=== PATIENT | female | born 1960 | race Caucasian/White ===

== ENCOUNTER 2018-06-25 18:16 | Observation (INO) ==
[2018-06-25] MEDS ORDERED: Naloxone 0.4 MG/ML INJ IVP PRN (21:35)
[2018-06-25 22:15] LABS: Estimated Average Glucose 105 mg/dl; Hemoglobin A1C 5.3 %
[2018-06-25 22:17] LABS: Prothrombin Time 11.4 Seconds (9.4-12.1)
[2018-06-25 22:20] LABS: Activated Partial Thrombo Time 27.3 Seconds (26.0-36.0)
[2018-06-25 22:37] LABS: Alanine Aminotransferase 12 Units/L (7-52); Albumin 3.4 g/dL (3.5-5.7); Albumin/Globulin Ratio 1.3 (1.1-2.2); Alkaline Phosphatase 89 Units/L (34-104); Aspartate Amino Transferase 12 Units/L (13-39); BUN/Creatinine Ratio 13 (6-26); Bilirubin,Total 0.3 mg/dL (0.3-1.0); Blood Urea Nitrogen 11 mg/dL (6-20); Calcium 8.9 mg/dL (8.6-10.3); Carbon Dioxide 23 mEq/L (23-29); Chloride 109 mEq/L (98-107); Chol/HDL Ratio 3.3 (0-4.9); Cholesterol 172 mg/dL (< 200); Ethanol < 10 mg/dL (Less than 10); Globulin 2.7 g/dL (2.4-3.5); Glucose 77 mg/dL (70-105); HDL Cholesterol 52 mg/dL (40-59); LDL Cholesterol,Calculated 90 mg/dL (0-99); Osmolality,Calculated 286 (280-300); Sodium 139 mEq/L (136-145); Total Protein 6.1 g/dL (6.4-8.9); Triglycerides 152 mg/dL (< 150); Troponin I < 0.03 ng/mL (< 0.04); eGFR For Non-African Americans > 60 (> 60)
[2018-06-25] MEDS ORDERED: Aspirin 325 MG TABLET PO ONE (23:55)
[2018-06-26 00:33] LABS: Bilirubin,Urine Negative (Negative); Blood,Urine Negative (Negative); Clarity,Urine Cloudy (Clear); Color,Urine Yellow (Yellow); Glucose,Urine (UA) Normal (Normal); Ketones,Urine Negative (Negative); Leukocyte Esterase,Urine Small (Negative); Nitrite,Urine Negative (Negative); PH,Urine 7.5 pH Units (5.0-8.0); Protein,Urine Negative (Neg-Trace); Specific Gravity,Urine 1.008 (1.010-1.025); Urobilinogen,Urine Normal (Normal)
[2018-06-26 00:55] LABS: Amphetamine Screen,Urine Negative ng/mL (Cutoff=1000); Barbiturate Screen,Urine Positive ng/mL (Cutoff=200); Benzodiazepines Screen,Urine Negative ng/mL (Cutoff=200); Cannabinoid Screen,Urine Negative ng/mL (Cutoff = 50); Cocaine Screen,Urine Negative ng/mL (Cutoff= 300); Opiate Screen,Urine Negative ng/mL (Cutoff=300); Phencyclidine Screen,Urine Negative ng/mL (Cutoff=25)
[2018-06-26 01:04] LABS: Squamous Epithelial Cell,Urine Few per lpf (None-Few); WBC,Urine 0-3 per hpf (0-3)
--- NOTE | 2018-06-26 01:23 | Internal Med History&Physical ---
Date of Encounter: 06/26/18 Time of Encounter: 01:17 Internal Medicine - H&P: HPI Chief complaint: Right upper extremity weakness/Word finding difficulty History of present illness: Ms. Hewitt is a 57 year old female with a past medical history of anxiety, depression, bipolar disorder, who initially presented to [facility] with a chief complaint of word finding difficulty and right sided upper extremity weakness. Patient states that around 1 PM in the afternoon while waiting in the car, she noted difficulty grasping objects with both hands, however more so with her right hand. She noted this when she went to take a drink of pop out of the bottle. She also noted worsening tremors in her hands which has been ongoing. At the same time, after her boyfriend returned the vehicle she noted difficulty speaking stating that she knew what she wanted to say but could not say the words. She reports that the symptoms became progressively worse on her way to the hospital. Patient did report a mild headache during the day. She does have a history of migraines, but states that her headache at that time was very mild in comparison. Initial CT scan of the head was unremarkable. Patient was subsequently transferred to [place] for further evaluation and neurological workup. Patient reports that her symptoms resolved shortly prior to transfer. Patient does report a history of hand tremors as well as a family history of Parkinson's and stroke in her mother. Patient denies any recent illness, numbness, tingling, palpitations, fever, chills, chest pain, shortness of breath, palpitations, nausea, vomiting or diarrhea. Patient has a significant smoking history. She has been smoking since the age of 20 and at one point was smoking 3 packs a day for approximately 6 years. Patient states that she has been cutting down and is now down to half a pack a day. On my assessment patient was lying in bed in no acute distress. Neurologically she was intact with diminished sensation in her right lower extremity which she states is chronic since her knee surgery. Past Med Surg Social Fam HX - Past Medical History Medical history: arthritis, asthma, COPD Additional medical history: restless leg syndrome, heart murmur, overactive bladder Psychiatric history: anxiety, bipolar, depression - Past Surgical History Surgical History: appendectomy, , cholecystectomy Additional surgical history: knee surgery - Social History Smoking Status: Current every day smoker Packs per day: 1/2 Smokeless Tobacco Status: No Alcohol use: none - Family History Mother Living Status: Hx Family Cardiac Disorders: Yes (HTN) Hx Family Neurologic Disorders: Yes (Dementia) Father Hx Family Cardiac Disorders: Yes (heart disease, HTN) Hx Family Endocrine Disorder: Yes (DM) Internal Medicine - H&P: Meds Allergy/AdvReac Type Severity Reaction Status Date / Time escitalopram [From Lexapro] Allergy Hives Verified 06/25/18 22:06 All Systems PM: A 10-system review of systems was performed and is negative for pertinent findi ngs except as documented above in the HPI. - Constitutional Constitutional: no chills, no fever(s), no night sweats - EENT Eyes: no change in vision, no discharge, no pain, no photophobia Ears: no ear discharge, no ear pain, no tinnitus Nose, mouth and throat: no dysphagia, no nasal discharge, no neck pain, no sore throat - Cardiovascular Cardiovascular ROS IM: no chest pain, no diaphoresis, no dyspnea, no lightheadedness, no palpitations, no syncope - Respiratory Respiratory: no cough, no dyspnea, no wheezing, no excessive phlegm production - Gastrointestinal Gastrointestinal: no abdominal pain, no diarrhea, no hematemesis, no hematochezia, no melena, no nausea, no vomiting - Genitourinary Genitourinary: no change in urinary stream, no dysuria, no flank pain, no hematuria - Musculoskeletal Musculoskeletal ROS IM: no numbness, no tingling - Integumentary Integumentary IM: no rash, no unusual bruising - Neurological Neurological ROS: no confusion, no convulsions, no focal weakness, no numbness, no tingling, no tremor(s) - Hematologic/Lymphatic Hematologic/Lymphatic: no easy bruising - Constitutional Vitals: Temp Pulse Resp BP Pulse Ox 97.8 F 60 16 115/70 96 06/25/18 23:27 06/25/18 23:27 06/25/18 23:27 06/25/18 23:27 06/25/18 23:27 Exam: General: Alert and oriented 3; lying in bed in no acute distress Skin:Normal color, no rash, no lesions. HEENT:EOM, pupils equal, round and reactive. Cardiovascular:Normal S1 & S2, no rubs, murmurs or gallops. No JVD. Pulse regular. Lungs:Normal breath sounds, no wheezes or crackles. Abdomen:Soft, non-tender, no rigidity. Extremities:No deformity, no edema or tenderness, no joint swelling or clubbing. Neurological: Normal cognition and motor skills. Cranial nerves II through XII intact. No evidence of pronator drift. Mild dysmetria. Muscle strength 4 out of 5 bilaterally in the upper extremities. 4 out of 5 in the left lower extremity. Unable to access right lower extremity due to hip pain. Diminished sensation in the right lower leg. Sensation otherwise intact everywhere else. Pulses:Carotid and radial pulses normal +2. Rest of the physical exam is non contributory Internal Med - H&P Results - Labs CBC & Chem 7: 06/26/18 03:00 06/26/18 03:00 Labs: BMP 06/25/18 21:54 Sodium 139 Potassium 4.0 Chloride 109 H Carbon Dioxide 23 BUN 11 Creatinine 0.83 Glucose 77 Calcium 8.9 Cardiac Enzymes 06/25/18 Range/Units 21:54 Troponin I < 0.03 (< 0.04) ng/mL Liver Function 06/25/18 Range/Units 21:54 Total Bilirubin 0.3 (0.3-1.0) mg/dL AST 12 L (13-39) Units/L ALT 12 (7-52) Units/L Alkaline Phosphatase 89 (34-104) Units/L Albumin 3.4 L (3.5-5.7) g/dL Urine 06/26/18 Range/Units 00:20 Urine Color Yellow (Yellow) Urine Clarity Cloudy A (Clear) Urine pH 7.5 (5.0-8.0) pH Units Ur Specific [place] 1.008 L (1.010-1.025) Urine Protein Negative (Neg-Trace) mg/dL Urine Glucose (UA) Normal (Normal) mg/dL - Assessment and plan (1) TIA (transient ischemic attack) Current Visit: Yes Status: Acute Assessment and plan: 57-year-old female with history of bipolar disorder and significant smoking history presents with transient word finding difficulty and right greater than left upper extremity weakness which now appears to have resolved concerning for possible TIA. Patient is also taking lithium side effects can present similarly. -Neurochecks -We will obtain a lithium level. -We will continue aspirin and initiate statin. -MRI in the morning -We will obtain echo and carotid duplex of the neck -Neurology consult (2) COPD (chronic obstructive pulmonary disease) Current Visit: Yes Status: Acute Assessment and plan: No evidence of acute exacerbation. We will continue with supportive care and home medications. Qualifiers: Qualified Code(s): J44.9 - Chronic obstructive pulmonary disease, unspecified (3) Asthma Current Visit: Yes Status: Acute Assessment and plan: History of asthma. No evidence of an acute exacerbation. We will monitor Qualifiers: Asthma complication type: unspecified Qualified Code(s): J45.909 - Unspecified asthma, uncomplicated (4) History of bipolar disorder Current Visit: Yes Status: Acute Assessment and plan: We will obtain lithium level and hold medication until verified. (5) DVT prophylaxis Current Visit: Yes Status: Acute Assessment and plan: Subcutaneous heparin - Time Spent With Patient Total time spent is greater than 50% in coordination of care (as documented) at patient's floor/unit and/or counseling patient:
[2018-06-26 04:45] LABS: Basophils # 0.1 K/mcL (0.0-0.2); Basophils % 0.5 %; Eosinophils # 0.3 K/mcL (0.0-0.6); Eosinophils % 2.7 %; Hematocrit 38.5 % (35.3-44.9); Hemoglobin 12.2 g/dL (11.5-15.4); Immature Granulocytes % 0.2 % (0-4); Lymphocytes # 3.5 K/mcL (0.6-4.6); Lymphocytes % 36.9 %; Mean Corpuscular HGB Conc 31.7 g/dL (31.6-35.5); Mean Corpuscular Hemoglobin 27.1 pg (28.0-33.3); Mean Corpuscular Volume 85.6 fL (83.0-100.0); Mean Platelet Volume 11.9 fL (9.4-12.4); Monocytes # 0.7 K/mcL (0.0-1.3); Monocytes % 7.4 %; Neutrophils # 4.9 K/mcL (1.6-8.9); Platelet Count 243 K/mcL (140-400); Red Cell Distribution Width 14.8 % (11.5-14.5); Segmented Neutrophils % 52.3 %
[2018-06-26 04:50] LABS: Prothrombin Time 11.1 Seconds (9.4-12.1)
[2018-06-26 04:53] LABS: Activated Partial Thrombo Time 25.9 Seconds (26.0-36.0)
[2018-06-26 05:14] LABS: Alanine Aminotransferase 11 Units/L (7-52); Albumin 3.3 g/dL (3.5-5.7); Albumin/Globulin Ratio 1.2 (1.1-2.2); Alkaline Phosphatase 85 Units/L (34-104); Aspartate Amino Transferase 18 Units/L (13-39); BUN/Creatinine Ratio 14 (6-26); Bilirubin,Total 0.3 mg/dL (0.3-1.0); Blood Urea Nitrogen 13 mg/dL (6-20); Calcium 9.2 mg/dL (8.6-10.3); Carbon Dioxide 24 mEq/L (23-29); Chloride 109 mEq/L (98-107); Globulin 2.7 g/dL (2.4-3.5); Glucose 100 mg/dL (70-105); Magnesium 2.1 mg/dL (1.6-2.6); Osmolality,Calculated 288 (280-300); Phosphorous 3.3 mg/dL (2.7-4.5); Potassium 4.4 mEq/L (3.5-5.1); Sodium 139 mEq/L (136-145); eGFR For Non-African Americans > 60 (> 60)
[2018-06-26] MEDS: *HR* Heparin 5,000 UNIT/ML VIAL SQ SCH ×3 (05:57→22:20)
--- NOTE | 2018-06-26 09:52 | Neurology - Consult Note ---
Addendum entered and electronically signed by Eduard Herr MD 06/26/18 17:27: Patient seen and examined in the presence of LABOR RELATIONS OFFICER Moises Gomez. Case discussed and imaging studies reviewed together. I agree with his history taking, physical examination and assessment outline below. In summery, this is a 57 eyar old woman with PMH significant for COPD, benign tremors, anxiety, and right knee arthritis who presented to the ER with increasing tremors, generalized weakness right more than left as well as some balance difficulty. Patient carries a dagnosis of benign tremors involving both hand as well as her whole body and she feels that her inside is shaky. been having some subtle right hand weakness and balance difficulty. MRI of brain showed no acute intracranial abnormality Will recommend getting MRI of cervical spine to assess possible of cervical myelopathy although currently she has no definitive myelopathic symptoms. Likely a type of benign tremor that has been aggravated by anxiety and COPD and medications used to treat COPD. Will recommend CTA of neck for the findings of left carotid artery stenosis on duplex study. Please continue medical and supportive. Patient is to follow up with her primary neurologist management of her benign tremors Will follow up patient tomorrow once studies are complete. Original Note: Date of Encounter: 06/26/18 Time of Encounter: 09:39 Assessment and Plan (1) TIA (transient ischemic attack) Current Visit: Yes Status: Ruled-out Neurology has been consulted with concerns for transient ischemic attack. The patient presented with increased tremulousness of bilateral upper extremities, transient difficulty with word finding and bilateral upper extremity weakness right greater than left. These symptoms appear to have resolved. CT of head from outlying hospital is negative for hemorrhage, mass effect, or obvious acute ischemia Bilateral carotid Dopplers show findings of left distal ICA severe stenosis Review of labs did not reveal any metabolic or infectious cause to explain her symptoms Per my exam today the patient does not have any focal or lateralizing neurological deficits and she is back to baseline state of health. She does have weakness with activity and a decreased activity tolerance. Consider cervical myelopathy as a cause of the weakness. It is unclear at this time if her symptoms were the result of a TIA, but given her presentation with bilateral weakness in the absence of neurological findings I do not believe that she has. MRI did not reveal any acute pathology. My recommendations are as follows Plan/Rec MR c-spine to assess for cervical myelopathy as the cause of weakness CTA of the head/neck to further assess for stenosis ECHO-LVEF 60-65%, mild LV LILI, mild AR I agree with continuing ASA and Statin I have discussed risk factor modification including weight loss and smoking cessation (2) Tremor of both hands Current Visit: Yes Status: Acute chronic action tremors; has a history of non progressive tremors x years. She has seen a neurologist at [facility] in the past for the tremors and is on Primidone to help manage them. Today she is resting comfortably in bed and in no acute distress. She reports that her symptoms have subsided and that she is now back to baseline. The tremors are noted to occur with activity and I was able to verify this on exam.. She does not have any bradykinesia or overt rigidity that would cause me to assume her tremors are Parkinson's disease. Instead I believe these are intention tremors. Given the number of years she has had tremors I would expect that if her tremors were caused by Parkinson's she would have had more obvious disease progression. In regards to the increase in tremulousness of bilateral u pper extremities yesterday I suspect that this was due to to excess fatigue. At this time, in regards to her tremors I do not recommend any additional workup. She can follow-up with her neurologist at [facility], for further evaluation. I recommend continuing her primidone (3) Weakness Current Visit: Yes Status: Acute see plan above History of Present Illness Chief complaint: Generalized weakness, tremors and concerns for TIA HPI: Ms. Hewitt is a 57 year old female with a PMH of anxiety, depression, bipolar disorder, and tremors. She presents from [facility] with concerns for difficulty with word finding, weakness of all 4 extremities and worsening of her chronic tremors. The patient states that she was in [place] with her significant other and waiting in the car while he was at a doctor's appointment. At around 1 PM she began to notice that she was having tremors in her bilateral upper extremities and weakness in her arms and legs bilaterally as well. She reports that her right arm was weaker than her left and that her tremors are worse with action that her hands felt clumsy. She notes that she was having difficulty opening a bottle of soda due to tremors and weakness. In regards to neurological symptoms she denies any visual changes, slurred speech, facial droop, hemiplegia, hemiparesis or paresthesias. She does admit to a mild headache at the time of symptom onset but this has since resolved. CT of head obtained at [facility] was found to be negative for acute intracranial abnormalities. Per my review of her laboratory values she did not have any acute electrolyte disturbances. Neurology has been consulted to assist with evaluating the cause of weakness, and to evaluate for suspected TIA. Past Med Surg Social Fam HX - Past Medical History Medical history: arthritis, asthma, COPD Additional medical history: restless leg syndrome, heart murmur, overactive bladder Psychiatric history: anxiety, bipolar, depression - Past Surgical History Surgical History: appendectomy, , cholecystectomy Additional surgical history: knee surgery - Social History Smoking Status: Current every day smoker Packs per day: 1/2 Smokeless Tobacco Status: No Alcohol use: none - Family History Mother Living Status: Hx Family Cardiac Disorders: Yes (HTN) Hx Family Neurologic Disorders: Yes (Dementia) Father Hx Family Cardiac Disorders: Yes (heart disease, HTN) Hx Family Endocrine Disorder: Yes (DM) Medications and Allergies Benzonatate 100 mg PO BID PRN 06/26/18 [History] BuPROPion SR (12 HR) [Wellbutrin SR] 150 mg PO BID 06/26/18 [History] Cholestyramine 1 packet PO BID PRN 06/26/18 [History] Cyclobenzaprine [Flexeril] 10 mg PO TID PRN 06/26/18 [History] Dicyclomine Hcl [Bentyl] 20 - 40 mg PO HS 06/26/18 [History] Diphenhydramine HCl [Allergy] 25 - 50 mg PO DAILY 06/26/18 [History] Ergocalciferol (VITAMIN D2) [Vitamin D2] 50,000 unit PO DAILY 06/26/18 [History] Estrogen, Con/M-Proges Acet [Prempro 0.625-2.5 mg Tablet] 1 tab PO DAILY 06/26/18 [History] FLUoxetine HCl [Fluoxetine HCl] 40 mg PO BID 06/26/18 [History] Gabapentin 600 mg PO TID PRN 06/26/18 [History] Guaifenesin [Mucus Relief] 400 mg PO Q4H PRN 06/26/18 [History] Ibuprofen 400 - 800 mg PO Q4-6H PRN 06/26/18 [History] [place] Carbonate 300 mg PO BID 06/26/18 [History] Methocarbamol [Robaxin] 750 mg PO BID PRN 06/26/18 [History] Multivit,Th Iron,Other Min [Therems-M] 1 tab PO DAILY 06/26/18 [History] Mupirocin [Bactroban Oint] 1 appl NS BID PRN 06/26/18 [History] Oxybutynin Chloride [Ditropan Xl] 15 mg PO DAILY 06/26/18 [History] Primidone [Mysoline] 100 mg PO BID 06/26/18 [History] Propranolol HCl 80 mg PO BID 06/26/18 [History] Rizatriptan Benzoate [Maxalt] 10 mg PO PRN PRN MDD 20 06/26/18 [History] Topiramate 50 mg PO BID PRN 06/26/18 [History] Tramadol HCl [Ultram] 50 mg PO TID PRN 06/26/18 [History] raNITIdine HCl [Ranitidine HCl] 300 mg PO DAILY 06/26/18 [History] Allergy/AdvReac Type Severity Reaction Status Date / Time escitalopram [From Lexapro] Allergy Hives Verified 06/26/18 08:51 All Systems: The remainder of the systems were reviewed and are negative Review of Systems: REVIEW OF SYSTEMS GENERAL: Negative for any nausea, vomiting, fevers, chills, or mobility impairment POSITIVE: slow to complete tasks, decreased activity tolerance NEUROLOGIC: Negative for any double vision, facial asymmetry, dysphagia, d ysarthria, hemiparesis, hemisensory deficits, vertigo, ataxia, seizures, convulsions, disorientation, coordination difficulties shuffling gait, difficulty rising from seated position POSITIVE: blurred vision (has since resolved), headache (has since resolved) difficulty with word finding, clumsiness of hands, and bilateral upper arm tremors. PSYCH: NEGATIVE: agitation/irritability, personality changes, delirium, mood changes, insomnia, nightmares, SI/HI POSITIVE: depression, anxiety HEENT: Negative for any head trauma, neck trauma, neck stiffness, photophobia, phonophobia, dysphagia, voice changes CARDIAC: Negative for any chest pain, dyspnea on exertion, HTN GASTROINTESTINAL: Negative for any abdominal pain, nausea, vomiting, bright red blood per rectum, melena. ENDOCRINE: Thyroid trouble, heat/cold intolerance, excessive sweating MUSCULOSKELETAL: Joint pain, stiffness, loss of strengt (bilateral/unilateral), arthritis (mono or poly) Joint swelling (mono or poly), muscle pain/swelling, limitations to motor activity or tolerance INTEGUMENTARY: Negative for any rashes, eruptions, dryness, changes in skin/hair, nails Physical Examination - Vital Signs Vital Signs: Initial Vital Signs Temp Pulse Resp BP Pulse Ox 98.1 F 61 16 121/78 95 06/25/18 21:19 06/25/18 21:19 06/25/18 21:19 06/25/18 21:19 06/25/18 21:19 - Exam Exam: Examination: General Examination: appears generally well, in no acute distress, resting comfortably in bed *CONSTITUTIONAL: obese, appropriate hygeine *GENERAL APPEARANCE OF PATIENT appears stated age and well groomed *EYES: pupils equal, round, reactive to light and accommodation, conjunctiva clear without masses or ulcerations, fundi normal. *CARDIOVASCULAR RRR, S1, S2, no mumurs, rubs, or gallops, no peripheral edema, distal temperature normal, dorsalis pedis pulses normal. Musculoskeletal: *GAIT AND STATION normal Romberg testing, no abnormalities such as broad base gait or spasticity, diminished arm swing with slowed gait, dysrhythmic movement of left foot *ASSESSMENT OF MUSCLE STRENGTH IN THE UPPER AND LOWER EXTREMITIES bilateral deltoid, bicep, tricep, apple sorter strength, hip flexors ,anterior tibialis, dorsoflexion of the foot 5/5 *MUSCLE TONE IN THE UPPER AND LOWER EXTREMITIES normal. No abnormal movements, fasciculations or atrophy identified. Neurological: *ORIENTATION to time and place *RECURRENT AND REMOTE MEMORY intact *ATTENTION AND CONCENTRATION are normal *LANGUAGE FUNCTION no significant aphasia or dysarthia was noted. *FUND OF KNOWLEDGE aware of current events, past history, vocabulary *MENTAL attention span and concentration normal. *CN II optic fundi were normal, no papilledema noted. *CN III,IV, PERRLA extraocular eye movements were full, no nystagmus and no ptosis noted. *CN V shows normal sensation and jaw opens symmetrically. *CN VII shows normal facial movement symmetrically, upper and lower bi laterally. *CN VIII shows no significant hearing loss on examination in the office. *CN IX,,X palate elevated symmetrically and normal gag reflex was noted. *CN XI normal strength in the sternocleidomastoid muscles, symmetrical shoulder shrugging. *CN XII tongue protruded in the midline, with normal strength and movement. *SENSORY EXAMINATION light touch intact *REFLEXES: deep tendon reflexes were normal and symmetrical , grade 2/4 diffusely, no pathological reflexes were noted. *CEREBELLAR TESTING normal finger to nose *PAIN LEVEL 0/10 Results - Laboratory Findings CBC and BMP: 06/26/18 03:00 06/26/18 03:00 Abnormal lab findings: Abnormal lab results MCH 27.1 pg (28.0-33.3) L 06/26/18 03:00 RDW 14.8 % (11.5-14.5) H 06/26/18 03:00 APTT 25.9 Seconds (26.0-36.0) L 06/26/18 03:00 Chloride 109 mEq/L (98-107) H 06/26/18 03:00 Serum Total Protein 6.0 g/dL (6.4-8.9) L 06/26/18 03:00 Albumin 3.3 g/dL (3.5-5.7) L 06/26/18 03:00 Triglycerides 152 mg/dL (< 150) H 06/25/18 21:54 Urine Clarity Cloudy (Clear) A 06/26/18 00:20 Ur Specific [place] 1.008 (1.010-1.025) L 06/26/18 00:20 Ur Leukocyte Esterase Small (Negative) H 06/26/18 00:20 Ur Barbiturates Screen Positive ng/mL ([place]=273) H 06/26/18 00:20 Consult Discharge Plan - Plan Referrals: Eunice Rios MD [Primary Care Provider] - 07/04/18 2:00 pm
[2018-06-26] MEDS: Aspirin 81 MG TAB.CHEW PO SCH (10:43)
[2018-06-26] MEDS ORDERED: Isovue-370 500 ML BOTTLE IVP ONE (13:13)
[2018-06-26] MEDS: Primidone 50 MG TABLET PO SCH ×2 (13:51→20:29)
[2018-06-26] MEDS ORDERED: Gadolinium Contrast Agent (WT Based) IV PRN (15:41)
--- NOTE | 2018-06-26 15:47 | Electrocardiograph Report ---
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
[2018-06-26] MEDS ORDERED: Topiramate 25 MG TABLET PO PRN (17:59)
[2018-06-26] MEDS ORDERED: Benzonatate 100 MG CAPSULE PO PRN (17:59)
[2018-06-26] MEDS ORDERED: Methocarbamol 750 MG TABLET PO PRN (17:59)
[2018-06-26] MEDS ORDERED: Cholestyramine 4 GM POWD.PACK PO PRN (17:59)
[2018-06-26] MEDS ORDERED: traMADol 50 MG TABLET PO PRN (17:59)
[2018-06-26] MEDS ORDERED: (Rizatriptan Benzoate [Maxalt] 10 MG) PO PRN (17:59)
[2018-06-26] MEDS ORDERED: Gabapentin 300 MG CAPSULE PO PRN (17:59)
[2018-06-26] MEDS ORDERED: Acetaminophen 325 MG TABLET PO PRN (18:09)
--- NOTE | 2018-06-26 19:19 | Event Note ---
Date of Encounter: 06/26/18 Time of Encounter: 11:00 Patient seen and evaluated by nocturnalist and also by myself Patient is a 49-year-old female here for rule out TIA/CVA MRI pending; nephrology following
[2018-06-26] MEDS: BuPROPion SR (12 HR) 150 MG TABLET PO SCH (20:29)
[2018-06-26] MEDS: Lithium Carbonate 300 MG CAPSULE PO SCH (20:29)
[2018-06-26] MEDS: FLUoxetine 20 MG CAPSULE PO SCH (20:29)
[2018-06-27] MEDS: *HR* Heparin 5,000 UNIT/ML VIAL SQ SCH ×2 (06:03→13:44)
[2018-06-27] MEDS: BuPROPion SR (12 HR) 150 MG TABLET PO SCH (08:12)
[2018-06-27] MEDS: FLUoxetine 20 MG CAPSULE PO SCH (08:12)
[2018-06-27] MEDS: Primidone 50 MG TABLET PO SCH (08:12)
[2018-06-27] MEDS: Aspirin 81 MG TAB.CHEW PO SCH (08:12)
[2018-06-27] MEDS: Lithium Carbonate 300 MG CAPSULE PO SCH (08:34)
[2018-06-27] MEDS ORDERED: Prempro 0.625/2.5 MG TABLET PO SCH (09:00)
[2018-06-27] MEDS ORDERED: Famotidine 20 MG TABLET PO SCH (09:00)
--- NOTE | 2018-06-27 09:46 | Neurology Progress Note ---
Date of Encounter: 06/27/18 Time of Encounter: 09:43 Assessment and Plan (1) Weakness Current Visit: Yes Status: Acute She is back to baseline status and does not have any focal or lateralizing deficits to exam today. Her weakness appears to have resolved and her tremors have returned to baseline. MRI of the spine did find some spinal canal narrowing at the C4-5, C5-6 but given the waxing and waning nature of her symptoms I do not feel this is the cause of her transient weakness and certainly not her tremors. If this were cervical myelopathy and I would expect it to be insidious and progressive and I would not expect her symptoms to improve ov ernight without intervention. At this juncture I do not believe that her weakness were of a neurologic cause. Her tremors appear to be benign tremors and she has had these for years, and is being treated with primidone. I do not feel that she has any parkinsonian features as she is not displaying any bradykinesia, overt rigidity, or progressive weakness. She does have a h/o anxiety and appeared anxious yesterday during my exam. I feel that her tremors may have been aggravated by her anxiety. Our recommendations are to f/u with primary neurologist for further tremor management. I do not feel any further neurologic work up is needed. (2) TIA (transient ischemic attack) Current Visit: Yes Status: Ruled-out Neurology was consulted with concerns for TIA vs CVA, weakness and tremors. She presented with increased tremulousness of bilateral upper extremities, transient difficulty with word finding and bilateral upper extremity weakness right greater than left. This has been ruled out. MRI of the brain did not reveal any acute process to account for her symptoms. (3) Tremor of both hands Current Visit: Yes Status: Acute see above Subjective Principal diagnosis: Weakness 4 extremities right arm greater than left, increased tremors Interval history: The patient was seen and examined at bedside today. She is currently resting comfortably in bed and in no acute distress. She does note that her tremors are now back to baseline and she has had no return of weakness. I did discuss CTA and MRI of the C-spine findings. Patient denies any further questions at this time. Objective - Constitutional Vitals: Temp Pulse Resp BP Pulse Ox 97.9 F 57 16 125/77 96 06/27/18 07:21 06/27/18 07:21 06/27/18 07:21 06/27/18 07:21 06/27/18 07:21 Exam: Examination: General Examination: *CONSTITUTIONAL: Generally well-appearing, in no acute distress *GENERAL APPEARANCE OF PATIENT appears well groomed, slightly overweight *EYES: pupils equal, round, reactive to light and accommodation, conjunctiva clear without masses or ulcerations, fundi normal. *CARDIOVASCULAR RRR, S1, S2, no mumurs, rubs, or gallops, no peripheral edema, distal temperature normal, dorsalis pedis pulses normal. Musculoskeletal: *GAIT AND STATION normal, with normal Romberg testing, no abnormalities such as broad base gait or spasticity. Improvement in gait quality and speed with improved arm swing per my exam this morning. *ASSESSMENT OF MUSCLE STRENGTH IN THE UPPER AND LOWER EXTREMITIES bilateral deltoid, bicep, tricep, deportation examiner strength, hip flexors ,anterior tibialis, dorsoflexion of the foot 5/5 *MUSCLE TONE IN THE UPPER AND LOWER EXTREMITIES normal. No abnormal movements, fasciculations or atrophy identified. Neurological: *ORIENTATION to time, person, situation and place *RECURRENT AND REMOTE MEMORY intact *ATTENTION AND CONCENTRATION are normal *LANGUAGE FUNCTION no significant aphasia or dysarthia was noted. *FUND OF KNOWLEDGE aware of current events, past history, vocabulary *MENTAL attention span and concentration normal. *CN II optic fundi were normal, no papilledema noted. *CN III,IV, PERRLA extraocular eye movements were full, no nystagmus and no ptosis noted. *CN V shows normal sensation and jaw opens symmetrically. *CN VII shows normal facial movement symmetrically, upper and lower bilaterally. *CN VIII shows no significant hearing loss on examination in the office. *CN IX,,X palate elevated symmetrically and normal gag reflex was noted. *CN XI normal strength in the sternocleidomastoid muscles, symmetrical shoulder shrugging. *CN XII tongue protruded in the midline, with normal strength and mo vement. *SENSORY EXAMINATION light touch intact *REFLEXES: deep tendon reflexes were normal and symmetrical , grade 2/4 diffusely, no pathological reflexes were noted. *CEREBELLAR TESTING normal finger to nose, heel/knee/ortega, and tandem walk. *PAIN LEVEL 0/10 Results - Laboratory Findings CBC and BMP: 06/26/18 03:00 06/26/18 03:00 Abnormal lab findings: Abnormal lab results MCH 27.1 pg (28.0-33.3) L 06/26/18 03:00 RDW 14.8 % (11.5-14.5) H 06/26/18 03:00 APTT 25.9 Seconds (26.0-36.0) L 06/26/18 03:00 Chloride 109 mEq/L (98-107) H 06/26/18 03:00 Serum Total Protein 6.0 g/dL (6.4-8.9) L 06/26/18 03:00 Albumin 3.3 g/dL (3.5-5.7) L 06/26/18 03:00 Triglycerides 152 mg/dL (< 150) H 06/25/18 21:54 Urine Clarity Cloudy (Clear) A 06/26/18 00:20 Ur Specific [place] 1.008 (1.010-1.025) L 06/26/18 00:20 Ur Leukocyte Esterase Small (Negative) H 06/26/18 00:20 Ur Barbiturates Screen Positive ng/mL (Fuucll=525) H 06/26/18 00:20 Consult Discharge Plan - Plan Referrals: Eunice Rios MD [Primary Care Provider] - 07/04/18 2:00 pm
[2018-06-27 11:43] VITALS: BP 114/67
--- NOTE | 2018-06-27 14:07 | Discharge Summary ---
- NOTES TO OUTPATIENT PROVIDER Notes to Outpatient Provider: Repeat carotid Dopplers in 12 months Date of Encounter: 06/27/18 Time of Encounter: 11:00 - Discharge Diagnosis (1) TIA (transient ischemic attack) Priority: Primary Status: Ruled-out (2) History of bipolar disorder Priority: Secondary Status: Acute (3) COPD (chronic obstructive pulmonary disease) Priority: Secondary Status: Acute Qualifiers: COPD type: unspecified COPD Qualified Code(s): J44.9 - Chronic obstructive pulmonary disease, unspecified (4) Asthma Priority: Secondary Status: Acute Qualifiers: Asthma complication type: unspecified Qualified Code(s): J45.909 - Unspecified asthma, uncomplicated Hospital course: Patient is a 57-year-old female with past medical history significant for anxiety, depression and bipolar disorder, who initially presented to [facility] with a chief complaint of word finding difficulty and right sided upper extremity weakness. Patient reported of difficulty grasping objects with both hands, however more so with her right hand. She also noted worsening tremors in her hands which has been ongoing. Initial CT scan of the head was unremarkable. Patient was subsequently transferred to [facility] for further evaluation and neurological workup. Patient reports that her symptoms resolved shortly prior to transfer. During patients hospital stay CVA workup was initiated which was negative including no acute findings on MRI of the brain. Neurology was consulted with no further recommendations other than to follow-up with outpatient neurologist for continued management of generalized tremors. Carotid Dopplers did detect left distal ICA with severe 60-79% stenosis but on CT of the neck patient was noted to have tortuous left internal carotid artery most likely contributing to carotid Doppler findings. Discussed with vascular surgeon over the phone with recommendations for patient to follow-up with imaging in approximately one year. - Time Spent with Patient Total time spent providing and/or coordinating discharge services: Less than 30 minutes - Discharge Medications Home Medications: Benzonatate 100 mg PO BID PRN 06/26/18 [History] BuPROPion SR (12 HR) [Wellbutrin SR] 150 mg PO BID 06/26/18 [History] Cholestyramine 1 packet PO BID PRN 06/26/18 [History] Cyclobenzaprine [Flexeril] 10 mg PO TID PRN 06/26/18 [History] Dicyclomine Hcl [Bentyl] 20 - 40 mg PO HS 06/26/18 [History] Diphenhydramine HCl [Allergy] 25 - 50 mg PO DAILY 06/26/18 [History] Ergocalciferol (VITAMIN D2) [Vitamin D2] 50,000 unit PO DAILY 06/26/18 [History] Estrogen, Con/M-Proges Acet [Prempro 0.625-2.5 mg Tablet] 1 tab PO DAILY 06/26/18 [History] FLUoxetine HCl [Fluoxetine HCl] 40 mg PO BID 06/26/18 [History] Gabapentin 600 mg PO TID PRN 06/26/18 [History] Guaifenesin [Mucus Relief] 400 mg PO Q4H PRN 06/26/18 [History] Ibuprofen 400 - 800 mg PO Q4-6H PRN 06/26/18 [History] [place] Carbonate 300 mg PO BID 06/26/18 [History] Methocarbamol [Robaxin] 750 mg PO BID PRN 06/26/18 [History] Multivit,Th Iron,Other Min [Therems-M] 1 tab PO DAILY 06/26/18 [History] Mupirocin [Bactroban Oint] 1 appl NS BID PRN 06/26/18 [History] Oxybutynin Chloride [Ditropan Xl] 15 mg PO DAILY 06/26/18 [History] Primidone [Mysoline] 100 mg PO BID 06/26/18 [History] Propranolol HCl 80 mg PO BID 06/26/18 [History] Rizatriptan Benzoate [Maxalt] 10 mg PO PRN PRN MDD 20 06/26/18 [History] Topiramate 50 mg PO BID PRN 06/26/18 [History] Tramadol HCl [Ultram] 50 mg PO TID PRN 06/26/18 [History] raNITIdine HCl [Ranitidine HCl] 300 mg PO DAILY 06/26/18 [History] Allergies/Adverse Reactions: Allergy/AdvReac Type Severity Reaction Status Date / Time escitalopram [From Lexapro] Allergy Hives Verified 06/26/18 08:51 Date of admission: 06/25/18 21:05 Primary care physician: Eunice Rios MD Consults: 06/25/18 21:31 Consult to Neurology [CONS] Routine Consulting Provider: [facility] Reason for Consult: CVA/TIA with right sided weakness Call Completed: No Consult to Physical Therapy [CONS] Routine Comment: Evaluate, develop and implement POC Reason for Consult: CVA/TIA with right sided weakness Does patient have active BEDREST order?: Yes Is patient medically & hemodynamically stable?: Yes - Constitutional Vitals: Temp Pulse Resp BP Pulse Ox 98.5 F 62 16 114/67 98 06/27/18 11:42 06/27/18 11:42 06/27/18 11:42 06/27/18 11:42 06/27/18 11:42 Exam: Gen.: Nonacute distress, alert and oriented 3 Skin: Normal color - Patient Status Disposition: Home, Self-Care - Discharge Instructions Instructions: Chronic Obstructive Pulmonary Disease (DC) Follow Up With: Eunice Rios MD [Primary Care Provider] - 07/04/18 2:00 pm
== END 2018-06-27 14:50 | disposition home or self-care (01) ==
LOC: 3BNU → SUATTDRO 21:05
PROVIDERS: ADMIT Internal Medicine; ATTEND Hospitalist